=== PATIENT | male | born 1965 ===

== ENCOUNTER 2017-05-06 07:30 | Emergency (ER) | payer SELFPAY ==
[2017-05-06 07:46] VITALS: BP 136/88
--- NOTE | 2017-05-06 08:09 | UC ---
Throat Pain/Nasal Rachid HPI - HPI Summary HPI Summary: 2 WEEKS PT WAS IN A 30X40 FT ROOM STANDING 6-8 FEET AWAY FROM A 55 [address] DRUM OF FORMALDEHYDE (UNSURE IF IT WAS OPENED OR CLOSED). HIS THROAT BEGAN TO BURN SO HE LEFT THE AREA AND WENT OUTSIDE. THROAT BURNED FOR 2 HOURS THEN RESOLVED. WAS FINE FOR 2 DAYS THEN DEVELOPED COUGH AND HOARSE VOICE. STATES HE THINKS HE HAD A COUPLE OF DAYS OF FEVER TOO. SX ARE ALL IMPROVING BUT PT WANTED TO BE SURE IT WAS NOT RELATED TO FORMALDEHYDE EXPOSURE. NO N/V/D. - History of Current Complaint Chief Complaint: UCChemicalExposure Stated Complaint: WC-SORE THROAT Time Seen by Provider: 05/06/17 07:59 Hx Obtained From: Patient Onset/Duration: Sudden Onset, Lasting Days, Still Present Severity: Moderate Pain Intensity: 0 Pain Scale Used: 0-10 Numeric Cough: Nonproductive Associated Signs & Symptoms: Negative: Wheezing - Allergies/Home Medications Allergies/Adverse Reactions: Allergies Allergy/AdvReac Type Severity Reaction Status Date / Time No Known Allergies Allergy Verified 05/06/17 07:40 Home Medications: Home Medications NK [No Home Medications Reported] 05/06/17 [History Confirmed 05/06/17] PMH/Surg Hx/FS Hx/Imm Hx Previously Healthy: Yes - Surgical History Surgical History: Yes Surgery Procedure, Year, and Place: Appendectomy, 1990, [place]; Rhonioplasty s.p Fracture, 1988, [place]; Tonsillectomy, ~1973, [place] - Family History Known Family History: Negative: Hypertension - Social History Alcohol Use: Rare Substance Use Type: None Smoking Status (MU): Never Smoked Tobacco Review of Systems Constitutional: Negative Skin: Negative ENT: Other - HOARSE VOICE Respiratory: Cough Cardiovascular: Negative Gastrointestinal: Negative Neurological: Headache All Other Systems Reviewed And Are Negative: Yes Physical Exam Triage Information Reviewed: Yes Appearance: Well-Appearing, No Pain Distress, Well-Nourished Vital Signs: Initial Vital Signs Temp 98.1 F 05/06/17 07:38 Pulse 78 05/06/17 07:38 Resp 16 05/06/17 07:38 BP 136/88 05/06/17 07:38 Pulse Ox 98 05/06/17 07:38 Vital Signs Reviewed: Yes Eyes: Positive: Conjunctiva Clear ENT: Positive: Hearing grossly normal, Pharynx normal, TMs normal, Hoarse voice Neck: Positive: Supple, Nontender, No Lymphadenopathy Respiratory Exam: Normal Cardiovascular Exam: Normal Abdomen Description: Positive: Soft Musculoskeletal: Positive: No Edema Neurological: Positive: Alert Psychological: Positive: Age Appropriate Behavior Skin: Negative: rashes Throat Pain/Nasal Course/Dx - Course Course Of Treatment: POISON CONTROL CONTACTED. NO ACUTE INTERVENTION INDICATED AT THIS TIME. SEE NURSE NOTE FOR DETAILS. PT ADMITS TO URI SX OVER THE PAST 2 WEEKS THAT HE STATES ARE IMPROVING. LARYNGITIS IS LIKELY DUE TO THIS URI OPPOSED TO THE CHEMICAL EXPOSURE. PT DECLINES TX WITH PREDNISONE. F/U ENT IF NOT CONTINUING TO IMPROVE. - Differential Dx/Diagnosis Provider Diagnoses: LARYNGITIS Discharge - Discharge Plan Condition: Stable Disposition: HOME Patient Education Materials: Laryngitis (ED) Referrals: Boom Murillo MD [Primary Care Provider] - If Needed Additional Instructions: YOUR HOARSE VOICE IS MORE LIKELY DUE TO AN UPPER RESPIRATORY INFECTION (THAT SEEMS TO BE IMPROVING) THAN TO THE FORMALDEHYDE EXPOSURE. POISON CONTROL CONTACTED AND CONFIRMED THERE IS NO ACUTE INTERVENTION WARRANTED AT THIS TIME. FOLLOW-UP WITH ENT IF YOUR SYMPTOMS DO NOT CONTINUE TO IMPROVE. [facility] [place] [facility] [phone] [facility] IN [place] ([place] OFFICE HOURS ON TUESDAYS) DR. JOSE DILL Address: [address] [place] [address] (Tuesdays) Phone [place]: Phone [place]:
== END 2017-05-06 08:58 | disposition home or self-care (01) ==
LOC: UCCORT 07:30
DX: J04.0 Acute laryngitis (principal)
CPT/HCPCS: 99202; G0463